=== PATIENT | female | born 1950 | race Caucasian/White ===

== ENCOUNTER → 2016-08-16 17:51 | Outpatient (CLI) | payer BC ==
[2015-06-17 11:24] VITALS: BMI 28.2
[~2016-08-16 17:51] MED LIST: ARMOUR THYROID90 MG PO; BAYER CHEWABLE81 MG PO; COZAAR25 MG PO; FEXOFENADINE H180 MG PO; FORTAMET500 MG/BOT PO; LIPITOR20 MG PO; PLAVIX75 MG PO; SINGULAIR10 MG PO; ULTRAM50 MG PO; ZYRTEC-D T1 TAB.SR . PO
== END | disposition home or self-care (01) ==
LOC: D.MAMMO 11:30
DX: Z12.31 Encounter for screening mammogram for malignant neoplasm of breast (principal)

== ENCOUNTER → 2017-05-21 13:37 | Outpatient (CLI) | payer BC ==
[2015-06-17 11:24] VITALS: BMI 28.2
== END | disposition home or self-care (01) ==
LOC: D.US 13:37
DX: I65.23 Occlusion and stenosis of bilateral carotid arteries (principal)

== ENCOUNTER → 2018-07-15 10:49 | Outpatient (CLI) | payer BC ==
[2015-06-17 11:24] VITALS: BMI 28.2
== END | disposition home or self-care (01) ==
LOC: D.US 10:49
DX: I65.23 Occlusion and stenosis of bilateral carotid arteries (principal)

== ENCOUNTER 2018-11-19 08:00 | Outpatient (CLI) | payer BC ==
[2015-06-17 11:24] VITALS: BMI 28.2
== END 2018-11-19 09:00 | disposition home or self-care (01) ==
LOC: D.MAMMO 08:00
PROVIDERS: ATTEND Family Medicine
DX: Z12.31 Encounter for screening mammogram for malignant neoplasm of breast (principal)

== ENCOUNTER → 2019-07-16 13:16 | Outpatient (CLI) | payer BC ==
[2015-06-17 11:24] VITALS: BMI 28.2
== END | disposition home or self-care (01) ==
LOC: D.US 13:16
PROVIDERS: ATTEND Internal Medicine Cardiovascular Disease
DX: I65.29 Occlusion and stenosis of unspecified carotid artery (principal)

== ENCOUNTER → 2020-10-25 13:30 | Outpatient (CLI) | payer BC, MEDICARE ==
[2015-06-17 11:24] VITALS: BMI 28.2
== END | disposition home or self-care (01) ==
LOC: D.US 09:30
PROVIDERS: ATTEND Thoracic Surgery (Cardiothoracic Vascular Surgery)
DX: I65.23 Occlusion and stenosis of bilateral carotid arteries (principal)